=== PATIENT | male | born 1955 | race Caucasian/White ===

== ENCOUNTER 2024-01-26 00:52 | Emergency (ER) | payer MEDICARE ==
[~2024-01-26] VITALS: Ht 177.8 cm; Wt 100.0 kg
[2024-01-26 00:54] VITALS: O2SAT 99
[2024-01-26] MEDS: ACETAMINOPHEN 325MG TABLET PO ONE (01:33)
[2024-01-26 01:54] VITALS: TEMP 36.78072
[2024-01-26] MEDS ORDERED: BACL-141 MT (03:27)
[2024-01-26] MEDS ORDERED: ACET-2708 MT (03:27)
[2024-01-26 04:08] VITALS: BP 133/71; PULSE 67; RESP 16; O2SAT 96
== END 2024-01-26 04:09 | disposition home or self-care (01) ==
LOC: ER 00:52
DX: M25.552 Pain in left hip (principal); M25.562 Pain in left knee; M25.572 Pain in left ankle and joints of left foot; M25.512 Pain in left shoulder; I10 Essential (primary) hypertension
CPT/HCPCS: 71045; 73030; 73503; 73552; 73560; 73590; 73610; 99284

== ENCOUNTER 2024-09-09 09:01 | Emergency (ER) | payer MEDICARE ==
[~2024-09-09] VITALS: Ht 162.6 cm; Wt 98.0 kg
[~2024-09-09 09:01] MED LIST: ACET-2708 MT; BACL-141 MT
[2024-09-09 09:12] VITALS: O2SAT 98
[2024-09-09] MEDS: OXYMETAZOLINE HCL NASAL SPRAY 15ML BOTHNSTRLS STA (10:14)
[2024-09-09 12:00] LABS: BASOPHILS % 0.6 % (0.0-2.0); EOSINOPHILS % 0.2 % (0.0-5.0); HEMATOCRIT. 44.1 % (42.0-52.0); HEMOGLOBIN. 14.7 g/dL (14.0-18.0); LYMPHOCYTES % 11.6 % (20.0-50.0); MEAN PLATELET VOLUME 9.0 fl (7.4-10.4); MONOCYTES % 5.2 % (2.0-8.0); NEUTROPHILS % 82.4 % (40.0-76.0); PLATELET 203 x1000/uL (130-400); RED BLOOD CELL COUNT 4.66 mill/uL (4.7-6.1); RED CELL DISTRIBUTION WIDTH 13.3 % (11.6-14.6)
[2024-09-09 12:17] LABS: CREATININE 0.8 mg/dL (0.6-1.3); UREA NITROGEN BLOOD 24 mg/dL (9-23)
[2024-09-09 12:19] LABS: ASPARTATE AMINOTRANSFERASE 57 IU/L (<34); BILIRUBIN DIRECT 0.2 mg/dL (<=3.0)
[2024-09-09 12:20] LABS: BILIRUBIN TOTAL 0.8 mg/dL (0.1-1.0); PROTEIN TOTAL 7.7 g/dL (6.0-8.3)
[2024-09-09 12:28] LABS: INR 1.0
[2024-09-09] MEDS: TRANEXAMIC ACID 1,000MG/10ML TP ONE (13:02)
[2024-09-09 15:26] VITALS: BP 173/107; PULSE 87; RESP 22; TEMP 36.8; O2SAT 95
== END 2024-09-09 15:35 | disposition home or self-care (01) ==
LOC: ER 09:01
DX: R04.0 Epistaxis (principal); I10 Essential (primary) hypertension; D64.9 Anemia, unspecified
CPT/HCPCS: 30901; 36415; 80048; 80076; 85025; 86850; 86900; 99283

== ENCOUNTER 2024-09-11 15:16 | Emergency (ER) | payer MEDICARE ==
[~2024-09-11] VITALS: Ht 157.5 cm; Wt 97.0 kg
[2024-09-11 15:23] VITALS: BP 125/72; PULSE 74; RESP 16; TEMP 36.7; O2SAT 97
== END 2024-09-11 19:04 | disposition home or self-care (01) ==
LOC: ER 15:16
DX: R04.0 Epistaxis (principal); E78.00 Pure hypercholesterolemia, unspecified; I10 Essential (primary) hypertension; Z79.899 Other long term (current) drug therapy; Z98.890 Other specified postprocedural states
CPT/HCPCS: 99281